=== PATIENT | female | born 1980 | race Caucasian/White ===

== ENCOUNTER → 2017-12-07 | Outpatient (CLI) | payer MEDICARE ==
[~2017-12-07] MED LIST: ANAPROX DS550 MG PO; CIPRO250 MG PO; CLEOCIN HCL150 MG PO; CLEOCIN HCL300 MG PO; KENALOG ORABASE5 GM PO; PEPCID20 MG PO; TRAMADOL HCL50 MG PO
== END | disposition home or self-care (01) ==
LOC: MAMMO 10:32
DX: Z12.31 Encounter for screening mammogram for malignant neoplasm of breast (principal)

== ENCOUNTER → 2018-01-03 | Outpatient (CLI) | payer MEDICARE | END | disposition home or self-care (01) | LOC: MAMMO 11:10 | DX: R92.8 Other abnormal and inconclusive findings on diagnostic imaging of breast (principal) ==